=== PATIENT | male | born 1960 | race Caucasian/White ===

== ENCOUNTER 2024-09-15 14:56 | Emergency (ER) | payer MEDICARE, SELFPAY ==
[2024-09-15 15:03] VITALS: BP 159/73
[2024-09-15 15:31] LABS: % Basophils 0.6 % (0-2); % Eosinophils 2.8 % (0-6); % Immature Granulocytes 0.8 % (0-0.5); % Lymphocytes 18.7 % (20.5-51.1); % Monocytes 7.9 % (1.7-9.3); % Neutrophils 69.2 % (42.2-75.2); Absolute Basophils 0.1 10^3/uL (0-0.2); Absolute Eosinophils 0.3 10^3/uL (0-0.7); Absolute Immature Granulocytes 0.1 10^3/uL (0-0.05); Absolute Lymphocytes 1.9 10^3/uL (1.2-3.4); Absolute Monocytes 0.8 10^3/uL (0.1-0.6); Absolute Neutrophils 6.9 10^3/uL (1.4-6.5); Hematocrit 42.2 % (39.0-52.0); Hemoglobin 14.6 g/dL (13.0-18.0); Mean Corp Hgb Conc. 34.6 g/dL (33.0-37.0); Mean Corpuscular Hgb 31.1 pg (27.0-31.0); Nucleated Red Blood Cells % 0 % (-); Platelet Count 219 10^3/uL (130-400); Red Blood Cell Count 4.69 10^6/uL (4.70-6.10)
[2024-09-15 15:42] LABS: ALT (SGPT) 32 U/L (0-50); AST (SGOT) 23 U/L (17-59); Albumin 4.2 g/dl (3.5-5.0); Alkaline Phosphatase 113 U/L (38-126); Blood Urea Nitrogen 15 mg/dl (9-20); Calcium 9.5 mg/dl (8.4-10.2); Carbon Dioxide 25 mmol/L (22-30); Chloride 105 mmol/L (98-107); Glucose 134 mg/dl (70-99); Potassium 3.9 mmol/L (3.5-5.1); Sodium 139 mmol/L (135-145); Total Bilirubin 0.6 mg/dl (0.2-1.3); Total Protein 6.8 g/dl (6.3-8.2); eGFR > 60.00
[2024-09-15 15:56] LABS: Troponin I < 0.012 ng/ml
--- NOTE | 2024-09-15 17:21 | ED.GENMED ---
History of Present Illness
General
Chief Complaint: Cardiac Symptoms
Source: patient and spouse
Exam Limitations: none
Time Seen by Provider: 09/15/24 17:08
Nursing documentation reviewed up to this point in time: agreed with
History of Present Illness
History of Present Illness:
The patient is a 64-year-old man with a past medical history of elevated cholesterol who reports intermittent chest pain for several days. Patient reports that he first had an episode about 2 weeks ago and another 1 about 1 week ago. Patient
reports that he has been experiencing both left and right sided chest pain over the last 2 days. Patient reports that nothing makes the discomfort get better or worse. It does not seem to be associated with exertion, breathing or eating. Patient
reports he can just get it when he is standing in a chair. Patient reports he was recently evaluated by his primary care doctor and told his EKG looked abnormal. He reports he was told to make an appointment with cardiology at [facility], which he
did and has an appointment next month. Patient reports that today he has had intermittent left-sided chest pain which she describes as a pressure while at rest. He denies any shortness of breath, nausea, vomiting, cough or fever. Currently he
feels completely well. He denies leg pain leg swelling.
Past History
Past History
ED Past Medical History: COPD and Hypercholesterolemia
ED Past Surgical History: Cholecystectomy and Other (bowel resection)
Social History
Tobacco: Non-smoker
Alcohol: Other
Drug: None
Personal:
Living: with family
Employment: Employed
Family History
Family History: Other
Review of Systems
Review of Systems
Allergies reviewed?: Yes
All Other Systems: ROS reviewed and negative except as documented in HPI and ROS
Constitutional: Reports no symptoms
EENT: Reports no symptoms
Respiratory: Reports no symptoms
Cardiac: Reports chest pain
ABD/GI: Reports no symptoms
: Reports no symptoms
Musculoskeletal: Reports no symptoms
Neurological: Reports no symptoms
Endocrine: Reports no symptoms
Psychiatric: Reports no symptoms
Phy Exam
Physical Exam
Physical Exam:
Physical Exam
General: no apparent distress, not acutely ill, very well and comfortable appearing
Neck: supple. no meningeal signs. normal psoterior pharynx
Heart: s1/s2 regular rate and rhythm, no murmur. equal radial pulses.
Lungs: no acute respiratory distress. clear bilaterally
Abdomen: normal bowel sounds. not tender. no CVAT. No pulsatile mass
Neuro: alert and oriented. no focal neurological deficits
Skin: no rash
Psychiatric: well kept. interactive and cooperative
Extremities: no edema. no calf tenderness. negative homans. good distal pulses
Course
Orders/Labs/Results
Orders:
Orders
09/15/24 14:57
EKG [Electrocardiogram (*1)] Urgent
Reason for Study: Chest Pain
EKG- Treatment ONCE
09/15/24 15:16
Complete Blood Count/With Diff Urgent
Comprehensive Metabolic Panel Urgent
Troponin I Urgent
09/15/24 15:21
CT Head W/o Iv Contrast Urgent
Comment:
Reason For Exam: left sided facial numbness
09/15/24 17:43
D-Dimer Urgent
Troponin I Urgent
09/15/24 18:43
CR Chest - 2 Views Urgent
Comment:
Reason For Exam: CP
Abnormal Lab Results
09/15/24
15:16
RBC 4.69 L 10^6/uL
(4.70-6.10)
MCH 31.1 H pg
(27.0-31.0)
MPV 11.0 H fL
(7.4-10.4)
Abs Immat Gran (auto) 0.1 H 10^3/uL
(0-0.05)
Absolute Neuts (auto) 6.9 H 10^3/uL
(1.4-6.5)
Absolute Monos (auto) 0.8 H 10^3/uL
(0.1-0.6)
Immature Gran % 0.8 H %
(0-0.5)
Lymphocytes % 18.7 L %
(20.5-51.1)
Glucose 134 H mg/dl
(70-99)
09/15/24 15:16
09/15/24 15:16
Vital Signs
Initial and Last Documented VS:
Initial Vital Signs
Temp Pulse Resp BP Pulse Ox
97.9 F 61 18 159/73 96
09/15/24 15:03 09/15/24 15:03 09/15/24 15:03 09/15/24 15:03 09/15/24 15:03
Last Documented Vital Signs
Temp Pulse Resp BP Pulse Ox
97.9 F 55 16 137/79 95
09/15/24 15:03 09/15/24 17:37 09/15/24 17:37 09/15/24 17:37 09/15/24 17:37
MDM/Problems Addressed
Differential Diagnosis Includes:
Acute coronary syndrome, pneumonia, GERD, PE, COPD exacerbation
MDM/Problems Addressed:
Patient presents with acute chest pain
Chronic conditions affecting care: COPD
Acute Exacerbation and/or Progression of Chronic Illness:
Patient is breathing comfortably and denies any shortness of breath or wheezing. I do not feel there is an acute exacerbation of COPD
Acute Exacerbation and/or Progression of Chronic Illness: COPD
*Radiology
Radiology exam reviewed: preliminary read by ED provider (Chest x-ray shows no acute disease)
*Pulse Oximetry
Patient hypoxic: no
*EKG
Interpreted by ED Provider?: Yes
Interpretation: normal
Comparison EKG: no changes
Rate: normal
Rhythm: sinus
[place]: normal axis
Interval: normal interval
QRS Pattern: right bundle branch block
Ischemia: no ischemia
*Pbx Supervisor Interpretation
Rate: normal
Interpretation: normal
Rhythm: sinus
*Critical Care Note
Total Time (30-74mins, 75-104mins- exclusive of procedures): Not Applicable
Data Reviewed
Source: patient and spouse
Patient Management
Social determinants of health affecting care: Living situation and Strong social support
Escalation/DeEscalation of care consider admission/obs:
Patient looks extremely well and comfortable. He is EKG appears nonischemic. He has no pleuritic chest pain to suggest PE. He has had intermittent atypical chest pain for several days and troponin is normal. Therefore, it is doubtful he is acute
coronary syndrome. Patient assures me he has an upcoming appointment next month with cardiology. Patient assures me he will follow-up with cardiology. Patient told to return with any shortness of breath or further chest pain
ED Attending Note
-
Portions of this chart may have been created with voice recognition software.� Occasional wrong word or��sound alike� substitutions may have occurred due to the inherent limitations of voice recognition software.
Discharge Plan
Departure
Patient Disposition: Home (Routine Discharge)
Date of Disposition: 09/15/24
Time of Disposition: 19:09
Patient with high blood pressure during this ER visit?: Yes
Condition: Good
Covid-19: Not Applicable
Discharge Problem:
Chest pain
Instructions: Chest Pain (DC), BLOOD PRESSURE
Prescriptions:
No Action
omeprazole 40 MG capsule,delayed release(DR/EC)
40 mg PO DAILY
ibuprofen 200 MG tablet
200 mg PO Q4HPRN PRN (Reason: mild pain)
atorvastatin 40 mg Tablet
40 mg PO HS
Referrals:
Chandrika Chen MD [Family Provider] -
Activity Restrictions/Additional Instructions:
Please follow-up with cardiology as scheduled for next month.
Interventions
Interventions:
*Risk Screen - Suicide Last Done: 09/15/24 15:08
*General Assessment Last Done: 09/15/24 15:08
*Neglect/Abuse Screening Last Done: 09/15/24 15:08
*ED- Fall Risk Assessment Last Done: 09/15/24 17:37
*ED COVID-19 Vaccine History Last Done: 09/15/24 15:08
ED- Pulmonary Assessment Last Done: 09/15/24 17:37
ED- Cardiac Assessment Last Done: 09/15/24 17:37
Discharge Date and Time
Print Language: BELARUSIAN
[2024-09-15 17:37] VITALS: BP 137/79; BMI 27.6
[2024-09-15 17:38] VITALS: BP 137/79
[2024-09-15 18:00] VITALS: BP 127/71
[2024-09-15 18:14] LABS: D-Dimer < 0.27 ug/mlFEU (0.00-0.50)
[2024-09-15 18:22] LABS: Troponin I < 0.012 ng/ml
[2024-09-15 19:02] VITALS: BP 145/93
== END 2024-09-15 19:21 | disposition home or self-care (01) ==
LOC: EMR 14:56
PROVIDERS: Student in an Organized Health Care Education/Training Program; EMERGENCY PHYSICIAN Emergency Medicine; FAMILY PHYSICIAN Student in an Organized Health Care Education/Training Program
DX: R07.9 Chest pain, unspecified (principal); I45.10 Unspecified right bundle-branch block; E78.00 Pure hypercholesterolemia, unspecified; J44.9 Chronic obstructive pulmonary disease, unspecified; Z90.49 Acquired absence of other specified parts of digestive tract
CPT/HCPCS: 99285; 70450; 71046; 80053; 84484; 85025; 85379; 93005